=== PATIENT | male | born 1990 | race Caucasian/White ===

== ENCOUNTER 2017-11-25 09:03 | Emergency (ER) | payer SELFPAY ==
[~2017-11-25] VITALS: Ht 165.1 cm; Wt 59.0 kg
[2017-11-25] MEDS ORDERED: LORAZEPAM 2MG/ML CPJ IV ONE (10:00)
[2017-11-25] MEDS ORDERED: MORPHINE SULFATE 4 MG/ML CPJ (NOT FOR IM USE) IV ONE (10:00)
[2017-11-25] MEDS ORDERED: PROPOFOL 200MG/20ML VIAL IV ONE ×2 (11:00→13:30)
[2017-11-25] MEDS ORDERED: KETAMINE HCL 50 MG/ML 10ML IV ONE ×2 (11:00→13:30)
[2017-11-25 18:01] VITALS: BP 140/81
== END 2017-11-25 18:05 | disposition home or self-care (01) ==
LOC: ER 09:44
DX: S43.084A Other dislocation of right shoulder joint, initial encounter (principal); X58.XXXA Exposure to other specified factors, initial encounter; Y93.89 Activity, other specified; Y92.89 Other specified places as the place of occurrence of the external cause; Y99.8 Other external cause status
CPT/HCPCS: 23650; 73030; 96374; 96375; 96376; 99152; 99285; J2060; J2270; J3490; Z7610; J2704